=== PATIENT | male | born 1965 | race Caucasian/White ===

== ENCOUNTER 2019-07-08 19:11 | Inpatient (IN) | payer BC ==
[~2019-07-08] VITALS: Ht 175.3 cm; Wt 166.5 kg
[2019-07-08 20:17] VITALS: BP 153/84
[2019-07-08 20:44] LABS: ABSOLUTE NEUTROPHILS 6.7 thou/uL (1.4-8.2); BASOPHILS 0.7 % (0.0-2.0); EOSINOPHILS 2.8 % (0.0-3.0); HEMATOCRIT 39.4 % (42.0-52.0); HEMOGLOBIN 12.7 gm/dL (14.0-18.0); LYMPHOCYTES 19.1 % (24.0-44.0); MCH 27.2 pg (26.0-34.0); MCHC 32.3 g/dL (28.0-37.0); MCV 84.1 fL (80.0-100.0); MONOCYTES 6.2 % (1.0-8.0); PLATELET COUNT 285 thou/uL (150-400); POLYS 71.2 % (36.0-66.0); RBC 4.68 mil/uL (4.50-6.00); WBC 9.3 thou/uL (4.0-11.0)
[2019-07-08 20:55] LABS: CALCIUM 9.5 mg/dL (8.5-10.1); POTASSIUM 3.6 mmol/L (3.5-5.1)
[2019-07-08] MEDS ORDERED: STELARA90 MG/1 ML SUBQ (22:13)
[2019-07-08] MEDS ORDERED: DELZICOL400 M1 PO (22:13)
[2019-07-08] MEDS ORDERED: VITAMIN B-121000 MC2 SUBLING (22:13)
[2019-07-08 22:14] VITALS: BP 148/80
[2019-07-08 22:15] VITALS: BP 148/80
[2019-07-08 22:30] VITALS: BP 152/79
--- NOTE | 2019-07-09 02:29 | NUR ---
New pt arrived the unit around 2200. pt a&ox4. ambulates with steady gait to the bathroom and will call if assistance needed. pt had money that he wanted to to be locked up. pt valuable belonging sheet filled out, signed and pt placed money in the back and it was sealed infront of patient and sent with security. v/s stable. picture of left lower ext taken. wound swabbed for mrsa and sent to lab. no s/s of distress. will cont to monitor
[2019-07-09 04:31] VITALS: BP 137/70
[2019-07-09 04:54] LABS: ABSOLUTE NEUTROPHILS 6.3 thou/uL (1.4-8.2); BASOPHILS 0.4 % (0.0-2.0); EOSINOPHILS 3.1 % (0.0-3.0); HEMATOCRIT 38.7 % (42.0-52.0); HEMOGLOBIN 12.5 gm/dL (14.0-18.0); LYMPHOCYTES 16.2 % (24.0-44.0); MCH 27.1 pg (26.0-34.0); MCHC 32.3 g/dL (28.0-37.0); MONOCYTES 6.7 % (1.0-8.0); PLATELET COUNT 260 thou/uL (150-400); POLYS 73.6 % (36.0-66.0); RBC 4.61 mil/uL (4.50-6.00); RDW 15.1 % (10.5-14.5); WBC 8.6 thou/uL (4.0-11.0)
[2019-07-09 04:58] LABS: CALCIUM 9.2 mg/dL (8.5-10.1); MAGNESIUM 1.6 mg/dL (1.8-2.4); POTASSIUM 3.4 mmol/L (3.5-5.1)
[2019-07-09 07:17] VITALS: BP 133/81
[2019-07-09 16:28] VITALS: BP 142/53
--- NOTE | 2019-07-09 19:23 | NUR ---
Assumed pt care this am, VS stable. pt is up ad aaron and took a shower this am. Wound dressing soake, cleansed with saline, xerofoam, abd and kelix placed. ON blood sugar check insulin givne as per emar. Medication and diet are well tolerated, stayed on the recliner for most of the day and ambulated in his room. Isolation for MRSA of the wound confirmed, isolation maintained. POC followed, no signs or verbalizations of distress noted.
[2019-07-09 20:58] VITALS: BP 149/54
--- NOTE | 2019-07-10 04:32 | NUR ---
Assessments completed. no complaints overnight. pt denies pain. moderate amount of drainage noted on wound dressing. dressing changed. wound culture collected and sent to lab. pt spent the night in the recliner with intermittent periods where he elevates his legs. pt stated he can't elevate for too long because he gets severe leg cramps. v/s stable. no s/s of distress. will cont to monitor
[2019-07-10 08:00] VITALS: BP 124/53
[2019-07-10 15:00] VITALS: BP 121/59
--- NOTE | 2019-07-10 18:20 | NUR ---
Assumed pt care at 7am.Pt up in chair most of the times today with feet elevated.Assessment completed.vss .pt c/o lower extremity pain rated 3/10 but denied pain med.Pt tolerated meds and diet.Dr Langston here,order noted.drsg to left leg intact.No verbal c/o. Will continue to monitor.
[2019-07-10 19:21] VITALS: BP 123/65
--- NOTE | 2019-07-11 04:15 | NUR ---
ASSUMED PT CARE AROUND 191. AXOX4. LLE DRESSING C,D,I. NO S/S ACUTE DISTRESS NOTED OR REPORTED AT THIS TIME. WILL CONT TO MONITOR FOR ANY CHANGES IN CONDITION.
[2019-07-11 07:25] VITALS: BP 134/61
[2019-07-11] MEDS ORDERED: BACTRIM DS TAB1 EAC1 PO (09:01)
[2019-07-11 09:50] VITALS: BP 134/61
[2019-07-11 11:00] VITALS: BP 134/61
--- NOTE | 2019-07-11 12:10 | NUR ---
WOUND CONSULT; INITAL ASSESSMENT TODAY. THE PATIENT MAY BE D/C'D TODAY. THE LEFT LATERAL LE HAS S/S CONSISTANT WITH LEYPH EDEMA, WITH A 3 X 3 X 0.1 WOUND. THE DRAINAGE IS CLEAR AND YELLOW TINGED FROM THE XEROFORM GAUZE. SOME WARMTH TO THE EXTREMITIY. THE ERYTHEMA HAS DRAMATICALLY DECREASED WITH ANTIBIOTIC THERAPY THE LEG MARKINGS SHOW. THE PATIENT IS EAGAR TO GO HOME. RECOMMENDATIONS; XEROFORM,ABD, KERLIX, MARINA M/W/F PRN IF DRAIAGE OVERTAKES THE DRESSING. DISCUSSED WITH VALENTINA
--- NOTE | 2019-07-11 12:33 | NUR ---
Assumed pt care at 7am.Assessment completed.vss.Pt up in chair for breakfast . Am meds given and well tolerated.Dr Langston here,dc order noted.Wound care nurse change left leg drsg and took dc picture taken.Dc summary compile and reviewed with pt and mom.Saline lock dc'd.At 1220,pt [place] with mom accompanied by gold stamper.
[2019-07-11 23:07] LABS: GLYCOHEMOGLOBIN (HGB A1C) 7.5 % (4.8-5.6)
== END 2019-07-11 12:20 | disposition home or self-care (01) | DRG 603 ==
LOC: ER 19:11 → EDBD 19:11 → EROBS 22:11 → 4W 22:11
PROVIDERS: Emergency Medicine; Nurse Practitioner; ADMIT Hospitalist
DX: L03.116 Cellulitis of left lower limb (principal); K50.90 Crohn's disease, unspecified, without complications; Z68.43 Body mass index [BMI] 50.0-59.9, adult; E87.6 Hypokalemia; Z79.899 Other long term (current) drug therapy; Z88.8 Allergy status to other drugs, medicaments and biological substances
CPT/HCPCS: 10040